=== PATIENT | male | born 1980 | race Caucasian/White ===

== ENCOUNTER 2018-05-23 05:36 | Emergency (ER) | payer MEDICAID ==
[~2018-05-23] VITALS: Ht 175.3 cm; Wt 70.9 kg
[2018-05-23] MEDS ORDERED: KEPPRA (05:43)
[2018-05-23] MEDS ORDERED: DULO60CA7 PO (05:43)
[2018-05-23] MEDS ORDERED: LITH600C PO (05:44)
[2018-05-23] MEDS ORDERED: LEVE100020 PO (05:44)
[2018-05-23] MEDS ORDERED: TRAZ-137 PO (05:44)
--- NOTE | 2018-05-23 05:48 | NUR ---
PT DENIES DRUG AND ETOH USE, STATES HE HAS BIPOLAR AND SCHIZOPHRENIA. ARRIVES WITH VERY LARGE SUITCASE.
--- NOTE | 2018-05-23 05:58 | NUR ---
PT REPORTS TO THAT HE IS NO LONGER FEELING LIKE HARMING SELF, HIS PRIMARY CONCERN IS TO SOMEHOW GET HOME TO HIS .
--- NOTE | 2018-05-23 06:01 | NUR ---
SUICIDE REASSESSMENT IS NOW A 2 BASED ON CURRENT EVAL.
[2018-05-23 06:33] LABS: ANION GAP 8 mmol/L (5-15); BASOPHILS # (AUTO) 0.04 x10^3/uL (0-0.1); BASOPHILS % (AUTO) 1 % (0-1); CALCIUM 8.6 mg/dL (8.5-10.1); CHLORIDE 112 mmol/L (98-107); CREATININE 0.89 mg/dL (0.7-1.3); EOSINOPHILS # (AUTO) 0.09 x10^3/uL (0-0.4); EOSINOPHILS % (AUTO) 2 % (1-7); LYMPHOCYTES # (AUTO) 1.39 x10^3/uL (1-3.4); LYMPHOCYTES % (AUTO) 26 % (22-44); MD NO; MEAN CORPUSCULAR HEMOGLOBIN 32.1 pg (27.5-34.5); MEAN CORPUSCULAR HGB CONC 33.9 g/dL (33.2-36.2); MEAN CORPUSCULAR VOLUME 94.6 fL (81-97); MEAN PLATELET VOLUME 9.3 fL (7.4-10.4); MONOCYTES # (AUTO) 0.49 x10^3/uL (0.2-0.8); MONOCYTES % (AUTO) 9 % (2-9); NEUTROPHILS # (AUTO) 3.37 x10^3/uL (1.8-6.8); NEUTROPHILS % (AUTO) 63 % (42-75); PLATELET COUNT 176 x10^3/uL (130-400); RED BLOOD COUNT 5.09 x10^6/uL (4.38-5.82); RED CELL DISTRIBUTION WIDTH 12.8 % (9.4-14.8)
--- NOTE | 2018-05-23 06:56 | NUR ---
REPORT GIVEN TO CUAUHTEMOC TIDWELL
--- NOTE | 2018-05-23 06:56 | NUR ---
REC BS REPORT PT RESTING NADN ROOM SECURED SITTER IN THE [place] EYES ON THE PT
[2018-05-23 08:55] VITALS: BP 138/80
--- NOTE | 2018-05-23 11:06 | NUR ---
SW (MARINA) AWARE, WILL SEE PT JIMBO.
--- NOTE | 2018-05-23 12:05 | NUR ---
SW IN TO SEE PT
== END 2018-05-23 12:51 | disposition home or self-care (01) ==
LOC: ED 12:00
DX: F33.9 Major depressive disorder, recurrent, unspecified (principal); Z72.9 Problem related to lifestyle, unspecified; R78.89 Finding of other specified substances, not normally found in blood; G40.909 Epilepsy, unspecified, not intractable, without status epilepticus
CPT/HCPCS: 36415; 80048; 80178; 85025; 99284

== ENCOUNTER 2018-05-25 16:20 | Emergency (ER) | payer MEDICAID ==
[~2018-05-25] VITALS: Ht 170.2 cm; Wt 70.0 kg
[~2018-05-25 16:20] MED LIST: DULO60CA7 PO; KEPPRA; LEVE100020 PO; LITH600C PO; TRAZ-137 PO
[2018-05-25 17:20] VITALS: BP 104/65
[2018-05-25] MEDS ORDERED: KETOROLAC 30 MG/1 ML IM ONE (17:30)
[2018-05-25] MEDS ORDERED: METHOCARBAMOL 750 MG TABLET PO ONE (17:30)
[2018-05-25] MEDS ORDERED: KETOROLAC 30 MG/1 ML ONE (17:35)
[2018-05-25] MEDS ORDERED: METHOCARBAMOL 750 MG TABLET ONE (17:35)
== END 2018-05-25 18:04 | disposition home or self-care (01) ==
LOC: ED 17:58
DX: S39.012A Strain of muscle, fascia and tendon of lower back, initial encounter (principal); F17.210 Nicotine dependence, cigarettes, uncomplicated; Z72.9 Problem related to lifestyle, unspecified; X58.XXXA Exposure to other specified factors, initial encounter; Y93.89 Activity, other specified; Y92.89 Other specified places as the place of occurrence of the external cause; Y99.8 Other external cause status
CPT/HCPCS: 99283

== ENCOUNTER 2018-07-03 23:40 | Emergency (ER) | payer MEDICAID ==
[~2018-07-03] VITALS: Ht 175.3 cm; Wt 74.3 kg
--- NOTE | 2018-07-03 23:57 | NUR ---
PT STATES THAT HE IS JUST WANTING SOME HELP GETTING HIS MEDICATIONS STRAIGHT SO HE CAN FEEL BETTER, PLEASANT AND COOPERATIVE, HAS BEEN UNABLE TO ESTABLISH AN MD SINCE MOVING HERE IN [place].
[2018-07-04 00:13] LABS: BASOPHILS # (AUTO) 0.07 x10^3/uL (0-0.1); BASOPHILS % (AUTO) 1 % (0-1); EOSINOPHILS % (AUTO) 3 % (1-7); LYMPHOCYTES # (AUTO) 2.28 x10^3/uL (1-3.4); LYMPHOCYTES % (AUTO) 28 % (22-44); MD NO; MEAN CORPUSCULAR HEMOGLOBIN 31.7 pg (27.5-34.5); MEAN CORPUSCULAR HGB CONC 34.2 g/dL (33.2-36.2); MEAN CORPUSCULAR VOLUME 92.8 fL (81-97); MEAN PLATELET VOLUME 9.7 fL (7.4-10.4); MONOCYTES # (AUTO) 0.67 x10^3/uL (0.2-0.8); MONOCYTES % (AUTO) 8 % (2-9); NEUTROPHILS # (AUTO) 4.85 x10^3/uL (1.8-6.8); NEUTROPHILS % (AUTO) 60 % (42-75); PLATELET COUNT 190 x10^3/uL (130-400); RED BLOOD COUNT 5.39 x10^6/uL (4.38-5.82); RED CELL DISTRIBUTION WIDTH 13.1 % (9.4-14.8)
--- NOTE | 2018-07-04 00:13 | NUR ---
PT PROVIDED URINE SAMPLE, UA COLLECTED AND SENT TO LAB.
[2018-07-04 00:19] LABS: ALBUMIN 3.7 g/dL (3.4-5.0); ANION GAP 5 mmol/L (5-15); CALCIUM 8.4 mg/dL (8.5-10.1); CHLORIDE 113 mmol/L (98-107)
[2018-07-04 00:23] LABS: ALANINE AMINOTRANSFERASE 49 U/L (12-78); ALKALINE PHOSPHATASE 83 U/L (45-117); BILIRUBIN,TOTAL 0.4 mg/dL (0.2-1.0); CREATININE 0.89 mg/dL (0.7-1.3); TOTAL PROTEIN 7.1 g/dL (6.4-8.2)
[2018-07-04 00:28] LABS: ACETAMINOPHEN < 2 mcg/mL (10-30); SALICYLATE LEVEL < 1.7 mg/dL (2.8-20.0)
--- NOTE | 2018-07-04 00:39 | NUR ---
PT RESTING CALMLY WITH EYES CLOSED, NADN, EQUAL CHEST RISE/FALL OBSERVED, CALL LIGHT WITHIN REACH. AWAITING URINE RESULTS
[2018-07-04 00:49] LABS: AMPHETAMINE SCREEN, URINE Negative (Negative); BARBITURATE SCREEN, URINE Negative (Negative); BENZODIAZEPINE SCREEN, URINE Negative (Negative); CANNABINOID SCREEN, URINE Negative (Negative); COCAINE SCREEN, URINE Negative (Negative); METHADONE SCREEN, URINE Negative (Negative); OPIATE SCREEN, URINE Negative (Negative)
[2018-07-04 01:39] VITALS: BP 116/65
== END 2018-07-04 02:13 | disposition home or self-care (01) ==
LOC: ED 23:58
DX: F32.9 Major depressive disorder, single episode, unspecified (principal); J45.909 Unspecified asthma, uncomplicated
CPT/HCPCS: 36415; 80053; 80307; 80329; 85025; 99284; G0480

== ENCOUNTER 2018-10-20 20:01 | Emergency (ER) | payer MEDICAID ==
[~2018-10-20] VITALS: Ht 170.2 cm; Wt 65.0 kg
[2018-10-20] MEDS ORDERED: LORazepam 0.5MG TABLET PO ONE (20:30)
--- NOTE | 2018-10-20 20:30 | NUR ---
SZ PRECAUTIONS IN PLACE AT TIME OF ARRIVAL.
[2018-10-20] MEDS ORDERED: LORazepam 0.5MG TABLET ONE (20:31)
--- NOTE | 2018-10-20 20:35 | NUR ---
PT MEDICATED PER MAR. PT UP TO RESTROOM AT THIS TIME FOR UA. PT AMBULATES WITH STEADY GAIT.
[2018-10-20 20:49] LABS: BASOPHILS # (AUTO) 0.02 x10^3/uL (0-0.1); BASOPHILS % (AUTO) 0 % (0-1); EOSINOPHILS # (AUTO) 0.09 x10^3/uL (0-0.4); EOSINOPHILS % (AUTO) 1 % (1-7); LYMPHOCYTES # (AUTO) 1.51 x10^3/uL (1-3.4); LYMPHOCYTES % (AUTO) 21 % (22-44); MD NO; MEAN CORPUSCULAR HEMOGLOBIN 31.8 pg (27.5-34.5); MEAN CORPUSCULAR HGB CONC 33.1 g/dL (33.2-36.2); MEAN CORPUSCULAR VOLUME 96.1 fL (81-97); MEAN PLATELET VOLUME 8.9 fL (7.4-10.4); MONOCYTES # (AUTO) 0.46 x10^3/uL (0.2-0.8); MONOCYTES % (AUTO) 6 % (2-9); NEUTROPHILS % (AUTO) 71 % (42-75); PLATELET COUNT 204 x10^3/uL (130-400); RED BLOOD COUNT 5.01 x10^6/uL (4.38-5.82); RED CELL DISTRIBUTION WIDTH 12.3 % (9.4-14.8)
[2018-10-20 21:01] LABS: ALANINE AMINOTRANSFERASE 25 U/L (12-78); ALBUMIN 3.7 g/dL (3.4-5.0); ANION GAP 8 mmol/L (5-15); CALCIUM 9.1 mg/dL (8.5-10.1); CHLORIDE 108 mmol/L (98-107); CREATININE 1.16 mg/dL (0.7-1.3)
[2018-10-20 21:02] LABS: AMPHETAMINE SCREEN, URINE Negative (Negative); BARBITURATE SCREEN, URINE Negative (Negative); BENZODIAZEPINE SCREEN, URINE Negative (Negative); CANNABINOID SCREEN, URINE Negative (Negative); COCAINE SCREEN, URINE Negative (Negative); METHADONE SCREEN, URINE Negative (Negative); OPIATE SCREEN, URINE Negative (Negative)
[2018-10-20 21:04] LABS: ALKALINE PHOSPHATASE 69 U/L (45-117); BILIRUBIN,TOTAL 0.8 mg/dL (0.2-1.0); TOTAL PROTEIN 7.1 g/dL (6.4-8.2)
[2018-10-20 21:51] VITALS: BP 129/81
== END 2018-10-20 22:02 | disposition home or self-care (01) ==
LOC: ED 21:47
DX: G40.909 Epilepsy, unspecified, not intractable, without status epilepticus (principal); J45.909 Unspecified asthma, uncomplicated; F31.9 Bipolar disorder, unspecified; Z87.891 Personal history of nicotine dependence; Z86.73 Personal history of transient ischemic attack (TIA), and cerebral infarction without residual deficits
CPT/HCPCS: 36415; 80053; 80307; 85025; 99283

== ENCOUNTER 2019-03-24 12:50 | Emergency (ER) | payer MEDICAID ==
[~2019-03-24] VITALS: Ht 175.3 cm; Wt 73.5 kg
--- NOTE | 2019-03-24 13:22 | NUR ---
PT REPORTS DA SILVA/BLURRED VISION AND FEELINGS OF "ALMOST PASSING OUT" SINCE 10AM TODAY. PT WITH NO FOCAL NEURAL DEFICITS. PT TO NIBP, CONT PULSE OX
--- NOTE | 2019-03-24 13:40 | NUR ---
Req records from [facility]
[2019-03-24] MEDS ORDERED: ASPIRIN 81 MG TABLET CHEW ONE (13:46)
[2019-03-24 13:57] LABS: BASOPHILS # (AUTO) 0.03 x10^3/uL (0-0.1); BASOPHILS % (AUTO) 1 % (0-1); EOSINOPHILS # (AUTO) 0.07 x10^3/uL (0-0.4); EOSINOPHILS % (AUTO) 1 % (1-7); LYMPHOCYTES # (AUTO) 1.16 x10^3/uL (1-3.4); LYMPHOCYTES % (AUTO) 21 % (22-44); MD NO; MEAN CORPUSCULAR HGB CONC 33.2 g/dL (33.2-36.2); MEAN CORPUSCULAR VOLUME 96.4 fL (81-97); MEAN PLATELET VOLUME 8.8 fL (7.4-10.4); MONOCYTES # (AUTO) 0.37 x10^3/uL (0.2-0.8); MONOCYTES % (AUTO) 7 % (2-9); NEUTROPHILS # (AUTO) 3.96 x10^3/uL (1.8-6.8); NEUTROPHILS % (AUTO) 71 % (42-75); PLATELET COUNT 186 x10^3/uL (130-400); RED BLOOD COUNT 4.99 x10^6/uL (4.38-5.82); RED CELL DISTRIBUTION WIDTH 12.5 % (9.4-14.8)
[2019-03-24] MEDS ORDERED: ASPIRIN 81 MG TABLET CHEW PO ONE (14:00)
--- NOTE | 2019-03-24 14:00 | NUR ---
PT TO IMAGING
[2019-03-24 14:05] LABS: ALANINE AMINOTRANSFERASE 23 U/L (12-78); ALBUMIN 3.6 g/dL (3.4-5.0); ANION GAP 2 mmol/L (5-15); CALCIUM 8.7 mg/dL (8.5-10.1); CHLORIDE 113 mmol/L (98-107)
[2019-03-24 14:08] LABS: ALKALINE PHOSPHATASE 78 U/L (45-117); BILIRUBIN,TOTAL 0.3 mg/dL (0.2-1.0); CREATININE 1.03 mg/dL (0.7-1.3); TOTAL PROTEIN 7.1 g/dL (6.4-8.2)
[2019-03-24 14:21] VITALS: BP 108/72
--- NOTE | 2019-03-24 14:36 | NUR ---
PT RESTING ON [facility] AT THIS TIME, UDS COLLECTED AND SENT TO LAB. NAD NOTED
[2019-03-24 14:38] LABS: AMPHETAMINE SCREEN, URINE Negative (Negative); BARBITURATE SCREEN, URINE Negative (Negative); BENZODIAZEPINE SCREEN, URINE Negative (Negative); CANNABINOID SCREEN, URINE Negative (Negative); COCAINE SCREEN, URINE Negative (Negative); METHADONE SCREEN, URINE Negative (Negative); OPIATE SCREEN, URINE Negative (Negative)
--- NOTE | 2019-03-24 14:50 | NUR ---
PT NOW TO MRI
--- NOTE | 2019-03-24 15:28 | NUR ---
second request for medical records
--- NOTE | 2019-03-24 16:12 | NUR ---
Patient/Caregiver given discharge instructions and they have confirmed that they understand the instructions. Patient ambulatory with steady gait.
== END 2019-03-24 16:12 | disposition home or self-care (01) ==
LOC: ED 15:22
DX: R47.81 Slurred speech (principal); F31.9 Bipolar disorder, unspecified; J45.909 Unspecified asthma, uncomplicated; G40.909 Epilepsy, unspecified, not intractable, without status epilepticus; Z72.9 Problem related to lifestyle, unspecified
CPT/HCPCS: 36415; 70450; 70551; 80053; 80307; 85025; 93005; 99284

== ENCOUNTER 2019-04-06 06:42 | Emergency (ER) | payer MEDICAID ==
[~2019-04-06] VITALS: Ht 175.3 cm; Wt 71.8 kg
[2019-04-06] MEDS ORDERED: ONDANSETRON 2MG/ML, 2ML IVPush ONE (07:30)
[2019-04-06] MEDS ORDERED: SODIUM CHLORIDE 0.9% 1,000ML IVBOLUS ONE (07:30)
[2019-04-06] MEDS ORDERED: FAMOTIDINE 20 MG/2 ML IV ONE (07:30)
[2019-04-06 07:31] LABS: BASOPHILS # (AUTO) 0.03 x10^3/uL (0-0.1); BASOPHILS % (AUTO) 1 % (0-1); EOSINOPHILS % (AUTO) 0 % (1-7); LYMPHOCYTES # (AUTO) 1.47 x10^3/uL (1-3.4); LYMPHOCYTES % (AUTO) 24 % (22-44); MD NO; MEAN CORPUSCULAR HEMOGLOBIN 31.7 pg (27.5-34.5); MEAN CORPUSCULAR HGB CONC 33.5 g/dL (33.2-36.2); MEAN CORPUSCULAR VOLUME 94.7 fL (81-97); MEAN PLATELET VOLUME 8.6 fL (7.4-10.4); MONOCYTES # (AUTO) 0.65 x10^3/uL (0.2-0.8); MONOCYTES % (AUTO) 11 % (2-9); NEUTROPHILS # (AUTO) 3.99 x10^3/uL (1.8-6.8); NEUTROPHILS % (AUTO) 65 % (42-75); PLATELET COUNT 178 x10^3/uL (130-400); RED BLOOD COUNT 5.03 x10^6/uL (4.38-5.82)
[2019-04-06 07:39] LABS: ALBUMIN 3.8 g/dL (3.4-5.0); ANION GAP 5 mmol/L (5-15); CALCIUM 8.9 mg/dL (8.5-10.1); CHLORIDE 110 mmol/L (98-107)
[2019-04-06 07:43] LABS: ALANINE AMINOTRANSFERASE 29 U/L (12-78); ALKALINE PHOSPHATASE 70 U/L (45-117); BILIRUBIN,TOTAL 0.8 mg/dL (0.2-1.0); CREATININE 0.84 mg/dL (0.7-1.3); TOTAL PROTEIN 7.1 g/dL (6.4-8.2)
[2019-04-06] MEDS ORDERED: ONDANSETRON 2MG/ML, 2ML ONE (07:57)
[2019-04-06] MEDS ORDERED: FAMOTIDINE 20 MG/2 ML ONE (07:57)
[2019-04-06 08:18] LABS: MICROSCOPIC NOT IND
[2019-04-06 08:22] LABS: CULTURE INDICATED? NO
[2019-04-06 08:49] VITALS: BP 112/60
== END 2019-04-06 08:51 | disposition home or self-care (01) ==
LOC: ED 08:42
DX: R11.2 Nausea with vomiting, unspecified (principal); R10.84 Generalized abdominal pain; J45.909 Unspecified asthma, uncomplicated
CPT/HCPCS: 36415; 80053; 81003; 83690; 85025; 96361; 96374; 96375; 99283; J2405; J3490; J7030